=== PATIENT | female | born 1935 | race Caucasian/White ===

== ENCOUNTER 2016-05-12 00:17 | Inpatient (IN) | payer OTHER ==
[2016-05-12] VITALS (12 sets, daily range): BP systolic 93–166; BP diastolic 45–70; PULSE 98–119; RESP 16–20; TEMP 100.3; Ht 149.9 cm; Wt 48.0 kg
[~2016-05-12] VITALS: Ht 149.9 cm; Wt 48.0 kg
[2016-05-12] MEDS ORDERED: ONDANSETRON 4 MG INJ IV STA (01:04)
[2016-05-12] MEDS ORDERED: SOD CHLORIDE 0.9% 1,000 ML IV STA (01:04)
[2016-05-12 01:32] LABS: ADD UMIC YES; URINE BILIRUBIN (Dip) NEGATIVE (NEGATIVE); URINE BLOOD (Dip) 1+ (NEGATIVE); URINE COLOR LT. YELLOW (YELLOW); URINE GLUCOSE (Dip) >=1000 % (NEGATIVE); URINE KETONES (Dip) 40 (NEGATIVE); URINE LEUKOCYTE ESTERASE (Dip) NEGATIVE (NEGATIVE); URINE NITRITE (Dip) NEGATIVE (NEGATIVE); URINE TOTAL PROTEIN (Dip) NEGATIVE (NEGATIVE); URINE UROBILINOGEN (Dip) 0.2 E.U./dL (0.1-1.0)
[2016-05-12 01:42] LABS: ALBUMIN 3.4 g/dl (3.3-4.9); BACTERIA,URINE MANY; CHLORIDE 95 mmol/L (97-110); SODIUM 132 mmol/L (135-144); SQUAMOUS EPITHELIAL CELL,UR FEW; URINE RBCS 0-2 /HPF (0)
[2016-05-12 01:43] LABS: POTASSIUM 5.1 mmol/L (3.5-5.1)
[2016-05-12 01:44] LABS: CREATININE 0.84 mg/dl (0.44-1.00)
[2016-05-12 01:45] LABS: ALANINE AMINOTRANSFERASE 59 IU/L (13-69); ALBUMIN/GLOBULIN RATIO 0.97; ALKALINE PHOSPHATASE 149 IU/L (42-121); ANION GAP 18 (8-16); ASPARTATE AMINO TRANSFERASE 70 IU/L (15-46); BILIRUBIN,INDIRECT 0.2 mg/dl (0-1.1); BILIRUBIN,TOTAL 0.2 mg/dl (0.2-1.3); BLOOD UREA NITROGEN 25 mg/dl (7-20); CALCIUM 8.8 mg/dl (8.4-10.2); CARBON DIOXIDE 24 mmol/L (21-31); TOTAL PROTEIN 6.9 g/dl (6.1-8.1)
[2016-05-12 01:49] LABS: GLUCOSE 525 mg/dl (70-220)
[2016-05-12] MEDS ORDERED: INSULIN REGULAR, HUMAN 100 UNIT/1 ML 3ML VIAL SC ONE (02:00)
[2016-05-12 02:07] LABS: TROPONIN-I < 0.012 ng/ml (0.00-0.12)
[2016-05-12 02:51] LABS: MEAN CORPUSCULAR HEMOGLOBIN 22.3 pg (29.0-33.0); MEAN CORPUSCULAR HGB CONC 30.8 g/dl (32.0-37.0); MEAN CORPUSCULAR VOLUME 72.4 fl (82.0-101.0); MEAN PLATELET VOLUME 10.6 fl (7.4-10.4); PLATELET COUNT 267 10^3/UL (140-440); RED BLOOD COUNT 2.89 10^6/ul (4.20-5.40); RED CELL DISTRIBUTION WIDTH 22.5 % (11.5-14.5); UNCORRECTED WBC 15.2 10^3/ul (4.8-10.8); WHITE BLOOD COUNT 15.2 10^3/ul (4.8-10.8)
[2016-05-12 02:56] LABS: CONDITION 1; LH ANALYZER COMMENTS 1; SUSPECT 1
[2016-05-12 02:58] LABS: HEMOGLOBIN 6.5 g/dl (12.0-16.0)
[2016-05-12 03:17] LABS: BASOPHIL # 0.2 10^3/ul (0.0-0.1); LYMPHOCYTES # 0.5 10^3/ul (0.8-2.9); MONOCYTE # 0.3 10^3/ul (0.3-0.9); NEUTROPHIL # 14.3 10^3/ul (1.6-7.5)
[2016-05-12 03:18] LABS: PLATELET ESTIMATE PLT APPEAR ADEQUATE
--- NOTE | 2016-05-12 04:04 | ERA ---
ER Documentation Chief Complaint Date/Time DATE: 05/12/16 TIME: 03:56 Chief Complaint lower extremety edema, weakness 3 days HPI 80-year-old woman presents with recent weakness and dizziness for the last 3-4 days. She states she was recently diagnosed with anemia and began ferrous sulfate tablets. She denies blood per rectum or melena, no complaints of chest pain or shortness of breath, no fevers or chills, no vomiting or diarrhea. Denies recent blood transfusions or antibiotics. ROS All systems reviewed and are negative except as per history of present illness. Allergies Allergies: Coded Allergies: Penicillins (Verified Allergy, Severe, RASH, 05/12/16) Sulfa (Sulfonamide Antibiotics) (Verified Allergy, Severe, RASH, 05/12/16) aspirin (Verified Allergy, Severe, RASH, 05/12/16) PMhx/Soc Recurrent urinary tract infections, hypothyroidism, diabetes mellitus, diabetic retinopathy Hx Cardiac Disorders: Yes (DM) Hx Alcohol Use: No Hx Substance Use: No Hx Tobacco Use: No Smoking Status: Never smoker FmHx Family History: No diabetes Physical Exam Vitals Vital Signs Date Time Temp Pulse Resp B/P Pulse Ox O2 Delivery O2 Flow Rate FiO2 05/12/16 02:21 86 16 115/49 100 Room Air 05/12/16 01:23 Nasal Cannula 2 05/12/16 00:29 97.3 91 18 122/53 100 Physical Exam GENERAL: Well-developed, well-nourished, dehydrated appearing, in no apparent distress, looks nontoxic in appearance HEENT: Dry mucous membranes, pale conjunctival, no cervical spine tenderness or step-off deformities, no goiter, no jaundice or icterus, extraocular movements intact without pain. No submandibular induration, and no pharyngeal erythema NEURO: Alert and oriented 3, cranial nerves II through XII intact bilaterally, pupils equal round reactive to light, no focal deficits or facial asymmetry, sensation intact distally Strength 5/5 in upper and lower extremities bilaterally CARDIAC: Regular rate and rhythm, no murmurs rubs or gallops LUNGS: Clear bilaterally no wheezing crackles or stridor ABDOMEN: Soft nontender, no guarding, no rigidity, no rebound, no psoas sign no obturator sign. Normoactive bowel sounds SKIN: Warm and dry to touch, no abrasions, contusions, or hematomas, no lacerations, no ecchymosis, no target lesions, and without ulcers EXTREMITIES: No clubbing cyanosis or edema, calves are bilaterally symmetrical, no Homans sign, no popliteal cord sign. Distal pulses equal and bilateral PSYCH: Normal affect without agitation or irritability Result Diagram: 05/12/16 0110 05/12/16 0110 Results 24 hrs Laboratory Tests Test 05/12/16 01:10 05/12/16 02:13 05/12/16 03:47 Alanine Aminotransferase (ALT/SGPT) 59IU/L Albumin 3.4g/dl Albumin/Globulin Ratio 0.97 Alkaline Phosphatase 149IU/L Anion Gap 18 Aspartate Amino Transf (AST/SGOT) 70IU/L Basophils # 0.210^3/ul Basophils % 1.0% Blood Morphology Comment Blood Urea Nitrogen 25mg/dl Calcium Level 8.8mg/dl Carbon Dioxide Level 24mmol/L Chloride Level 95mmol/L Creatinine 0.84mg/dl Differential Comment Direct Bilirubin 0.00mg/dl Giant Platelets OCCASIONAL Globulin 3.50g/dl Glucose Level 525mg/dl Hematocrit 21.0% Hemoglobin 6.5g/dl Indirect Bilirubin 0.2mg/dl Large Platelets FEW Lipase 440U/L Lymphocytes # 0.510^3/ul Lymphocytes % 3.0% Mean Corpuscular Hemoglobin 22.3pg Mean Corpuscular Hemoglobin Concent 30.8g/dl Mean Corpuscular Volume 72.4fl Mean Platelet Volume 10.6fl Monocytes # 0.310^3/ul Monocytes % 2.0% Neutrophils # 14.310^3/ul Neutrophils % 94.0% Platelet Count 22055^3/UL Platelet Estimate PLT APPEAR ADEQUATE Potassium Level 5.1mmol/L Red Blood Count 2.8910^6/ul Red Cell Distribution Width 22.5% Sodium Level 132mmol/L Total Bilirubin 0.2mg/dl Total Protein 6.9g/dl Troponin I < 0.012ng/ml Urine Bacteria MANY Urine Bilirubin NEGATIVE Urine Clarity CLEAR Urine Color LT. YELLOW Urine Glucose >=1000% Urine Hemoglobin 1+ Urine Ketones 40 Urine Leukocyte Esterase NEGATIVE Urine Microscopic RBC 0-2/HPF Urine Microscopic WBC 0-2/HPF Urine Nitrite NEGATIVE Urine Specific [place] 1.010 Urine Squamous Epithelial Cells FEW Urine Total Protein NEGATIVE Urine Urobilinogen 0.2 E.U./dL Urine pH 5.5 White Blood Count 15.210^3/ul Bedside Glucose 444mg/dL 223mg/dL Current Medications Medications (Trade) Dose Ordered Sig/Pk Route PRN Reason Start Time Stop Time Status Last Admin Dose Admin Sodium Chloride (NS) 1,000 ml @ 1,000 mls/hr Q1H STAT IV 05/12/16 01:04 05/12/16 02:03 DC 05/12/16 01:17 Ondansetron HCl (Zofran Inj) 4 mg ONCE STAT IV 05/12/16 01:04 05/12/16 01:06 DC 05/12/16 01:17 Insulin Human Regular (Humulin R) 20 unit ONCE ONCE SC 05/12/16 02:00 05/12/16 02:01 DC 05/12/16 02:16 Procedures/MDM IV line was established patient was placed on school lunch monitor rhythm strip revealed a sinus rhythm at about 90 bpm with upright P and T waves. Patient was afebrile. EKG performed, read by me revealed a normal sinus rhythm at 80 bpm, right axis deviation, and a right ventricular conduction delay with a QRS duration of 114 ms, no concerning ST elevations or depressions noted. One AP view of the chest performed, read by me reveals no acute infiltrates, normal mediastinum, sharp costophrenic and cardiac borders, no air under the diaphragm. Otherwise unremarkable chest x-ray. I administered 1 L normal saline intravenously and Zofran 4 mg IV. Blood sugar was checked and it was elevated she received regular insulin 20 units subcutaneous injection 1 for hyperglycemia. CBC revealed a leukocytosis of 15 and severe anemia with a hemoglobin of 6.5. Electrolytes revealed dehydration with a BUN/creatinine of 25/0.8, blood sugar was 525 prior to insulin therapy, liver function tests are normal, troponin was negative. Urinalysis was negative for infection I ordered transfusion 2 units PRBCs IV over 4 hours for severe anemia. Critical Care: Time: 38 minutes, this was time separate from other procedures. Treatments/Evaluations: Close monitoring and treatment of unstable vital signs, cardiorespiratory, and neurologic status, while maintaining tight balance of fluid, respiratory, and cardiac interventions. Patient was last admitted to Dr. Rivera, I spoke to the physician covering him regarding the patient's presentation symptomatology. She accepted the patient who will be admitted to [facility]. Departure Diagnosis: Primary Impression: Acute weakness Additional Impressions: Anemia Qualified Code: D64.9 - Anemia, unspecified type Dehydration Hyperglycemia Condition: JON Bailey MD May 12, 2016 04:04
--- NOTE | 2016-05-12 04:52 | RADRPT ---
PROCEDURE: XR Chest. CLINICAL INDICATION: Shortness of breath. TECHNIQUE: AP Portable chest. COMPARISON: 07/12/2008 FINDINGS: There is mild cardiomegaly. Mild perihilar opacities are noted within the lower lungs. Diffuse inte rstitial prominence is seen. The osseous structures are unremarkable. IMPRESSION: Mild perihilar opacities and interstitial prominence likely due to edema. RPTAT: HIKT .Del Encarnacion MD, MD Date Time Electronically viewed and signed by .Del Encarnacion MD, MD on 05/12/2016 04:51 .T/
[2016-05-12] MEDS ORDERED: SOD CHLORIDE 0.9% 1,000 ML IV SCH (05:10)
[2016-05-12] MEDS ORDERED: ONDANSETRON 4 MG INJ IV PRN ×2 (05:30→12:00)
[2016-05-12] MEDS ORDERED: ACETAMINOPHEN 325 MG TAB PO PRN ×2 (05:30→12:00)
[2016-05-12] MEDS ORDERED: GLUCOSE GEL 15 GRAM TUBE ONE (06:41)
[2016-05-12] MEDS ORDERED: LANT3I SC (07:00)
[2016-05-12] MEDS ORDERED: HYDROCODONE/APAP (5/325) TAB PO PRN (07:00)
[2016-05-12] MEDS ORDERED: METF-388 PO (07:00)
[2016-05-12] MEDS: ACCUCHECK XX SCH ×4 (07:30→20:26)
[2016-05-12] MEDS: metFORMIN 500 MG TAB PO SCH ×2 (09:05→17:35)
[2016-05-12] MEDS ORDERED: NACL 0.9% 3 ML SYG IV SCH (12:00)
[2016-05-12] MEDS ORDERED: MAGNESIUM HYDROXIDE 30ML CUP PO PRN (12:00)
[2016-05-12] MEDS ORDERED: ZOLPIDEM 5 MG TAB PO PRN (12:00)
[2016-05-12] MEDS ORDERED: GLUCAGON 1 MG INJ IM PRN (13:30)
[2016-05-12] MEDS ORDERED: GLUCOSE GEL 15 GRAM TUBE PO PRN ×2 (13:30)
[2016-05-12] MEDS ORDERED: GLUCOSE GEL 15 GRAM TUBE BUCCAL PRN (13:30)
[2016-05-12] MEDS ORDERED: DEXTROSE 50% 50 ML SYRINGE IV PRN ×2 (13:30)
[2016-05-12] MEDS ORDERED: DIPHENHYDRAMINE 50 MG INJ IV ONE (17:00)
[2016-05-12] MEDS ORDERED: ACETAMINOPHEN 325 MG TAB PO ONE (17:00)
[2016-05-12 18:14] LABS: HEMATOCRIT 29.7 % (37.0-47.0); HEMOGLOBIN 9.6 g/dl (12.0-16.0)
[2016-05-12] MEDS: REPAGLINIDE 1 MG TAB PO SCH (18:26)
[2016-05-12] MEDS: INSULIN GLARGINE [LANtus] 3 ML PEN SC SCH (20:29)
[2016-05-12 21:38] LABS: POST-TRANSFUSION BILIRUBIN 0.4 mg/dl; PRETRANSFUSION BILIRUBIN 0.1 mg/dl
[2016-05-12 23:02] LABS: ADD UMIC YES; URINE BILIRUBIN (Dip) NEGATIVE (NEGATIVE); URINE BLOOD (Dip) 1+ (NEGATIVE); URINE COLOR LT. YELLOW (YELLOW); URINE GLUCOSE (Dip) >=1000 % (NEGATIVE); URINE KETONES (Dip) 15 (NEGATIVE); URINE LEUKOCYTE ESTERASE (Dip) NEGATIVE (NEGATIVE); URINE NITRITE (Dip) NEGATIVE (NEGATIVE); URINE TOTAL PROTEIN (Dip) NEGATIVE (NEGATIVE); URINE UROBILINOGEN (Dip) 0.2 E.U./dL (0.1-1.0)
[2016-05-12 23:36] LABS: BACTERIA,URINE MANY; SQUAMOUS EPITHELIAL CELL,UR FEW; URINE RBCS 0-2 /HPF (0)
[2016-05-13 05:12] LABS: HEMOGLOBIN 10.4 g/dl (12.0-16.0); MEAN CORPUSCULAR HEMOGLOBIN 25.1 pg (29.0-33.0); MEAN CORPUSCULAR HGB CONC 32.6 g/dl (32.0-37.0); MEAN CORPUSCULAR VOLUME 77.2 fl (82.0-101.0); MEAN PLATELET VOLUME 10.9 fl (7.4-10.4); PLATELET COUNT 234 10^3/UL (140-440); RED BLOOD COUNT 4.15 10^6/ul (4.20-5.40); RED CELL DISTRIBUTION WIDTH 21.7 % (11.5-14.5)
[2016-05-13] MEDS: ACETAMINOPHEN 325 MG TAB PO PRN ×2 (05:16→16:36)
[2016-05-13] MEDS: PANTOPRAZOLE (EC) 40 MG TAB PO SCH (05:16)
[2016-05-13 05:18] LABS: CONDITION 1; LH ANALYZER COMMENTS 1; SUSPECT 1
[2016-05-13 05:31] LABS: ALBUMIN 2.9 g/dl (3.3-4.9)
[2016-05-13 05:32] LABS: POTASSIUM 3.9 mmol/L (3.5-5.1)
[2016-05-13 05:34] LABS: ALBUMIN/GLOBULIN RATIO 0.82; BILIRUBIN,INDIRECT 0.3 mg/dl (0-1.1); BILIRUBIN,TOTAL 0.3 mg/dl (0.2-1.3); CREATININE 0.64 mg/dl (0.44-1.00); TOTAL PROTEIN 6.4 g/dl (6.1-8.1)
[2016-05-13 05:35] LABS: CALCIUM 8.4 mg/dl (8.4-10.2)
[2016-05-13] MEDS: ACCUCHECK XX SCH ×4 (07:30→21:00)
[2016-05-13 07:46] VITALS: BP 99/52; RESP 18
[2016-05-13] MEDS: REPAGLINIDE 1 MG TAB PO SCH ×3 (08:47→16:37)
[2016-05-13] MEDS: metFORMIN 500 MG TAB PO SCH ×2 (08:47→16:37)
[2016-05-13 09:31] LABS: MONOCYTE # 0.7 10^3/ul (0.3-0.9); MYELOCYTES # 0.1; NEUTROPHIL # 10.9 10^3/ul (1.6-7.5)
--- NOTE | 2016-05-13 13:13 | PN ---
Date/Time of Note Date/Time of Note DATE: 05/13/16 TIME: 13:05 Assessment/Plan VTE Prophylaxis VTE Prophylaxis Intervention: other Lines/Catheters IV [facility] Peripheral IV Urinary Cath still in place: No Assessment/Plan Problems: (1) Anemia Status: Acute Comment: Pending her iron studies. It is unclear exactly how long this anemia is been going on with this patient. She is not the best historian no complaint data came with her and she also has issues with compliance Qualifiers: Anemia type: unspecified type Qualified Code: D64.9 - Anemia, unspecified type (2) Diabetes mellitus type 2 in nonobese Status: Chronic Comment: For A1c was fair. She was on insulin only and metformin. She reports that she had a number of other medications whose name and purpose were unknown to her. She did stop these because she was taking "too many pills" (3) Hypothyroidism (acquired) Status: Chronic Comment: Patient has been taking levothyroxine at home. The dosing is unknown. Our staff at the emergency room did not delineate the details. In addition please note this patient has some issues of compliance although in this case I believe she was taking that medication (4) Diabetic retinopathy associated with type 2 diabetes mellitus Status: Chronic Comment: Status of this issue is unknown. It does not meet immediate urgency but she will need to follow-up with us as an outpatient. Qualifiers: Diabetic retinopathy severity: with unspecified retinopathy severity Laterality: unspecified laterality Subjective 24 Hr Interval Summary Free Text/Dictation 80-year-old female reports was told to go to the hospital by her primary care physician Dr. Joseph Castellanos of [facility] for anemia. No other data is available patient had been on number of medications at home most which she discontinued. Constitutional: no complaints (Denies fevers chills or sweats) Eyes: no complaints (Denies any issues but has not been in to see the commercial driver for routine diabetic eye checks) ENT: no complaints Respiratory: no complaints Cardiovascular: no complaints Gastrointestinal: no complaints Genitourinary: no complaints Musculoskeletal: other (Complains of discomfort at the left anterior superior iliac crest intermittently) Neurologic: no complaints Lymphatic: no complaints Exam/Review of Systems Vital Signs Vitals Vital Signs Date Time Temp Pulse Resp B/P Pulse Ox O2 Delivery O2 Flow Rate FiO2 05/13/16 07:46 98.7 69 18 99/52 96 05/12/16 18:45 Room Air 05/12/16 01:23 2 Intake and Output 05/12/16 05/12/16 05/13/16 15:00 23:00 07:00 Intake Total 1280 ml 240 ml Output Total 700 ml 300 ml Balance 580 ml -60 ml Exam Constitutional: alert, oriented Neck: non-tender, supple Respiratory: clear to auscultation, normal air movement Cardiovascular: nl pulses, regular rate and rhythm Gastrointestinal: nl liver, spleen, non-tender, soft, surgical scars (Midline surgical scars consistent with her reported prior 2 C-sections) Musculoskeletal: nl extremities to inspection (Did not ambulate) Extremities: normal pulses Results Result Diagram: 05/13/1642105/13/16421 Results 24 hrs Laboratory Tests Test 05/12/16 16:00 05/12/16 17:31 05/12/16 18:00 05/12/16 20:03 Bedside Glucose 360 H 348 H 372 H Hematocrit 29.7 #L Hemoglobin 9.6 #L Test 05/12/16 21:40 05/12/16 22:15 05/13/16 02:16 05/13/16 04:22 Urine Bacteria MANY Urine Bilirubin NEGATIVE Urine Clarity SLIGHTLY CLOUDY Urine Color LT. YELLOW Urine Glucose >=1000 Urine Hemoglobin 1+ H Urine Ketones 15 Urine Leukocyte Esterase NEGATIVE Urine Microscopic RBC 0-2 Urine Microscopic WBC 5-10 Urine Nitrite NEGATIVE Urine Specific [place] 1.020 Urine Squamous Epithelial Cells FEW Urine Total Protein NEGATIVE Urine Urobilinogen 0.2 E.U./dL Urine pH 5.0 Stool Occult Blood NEGATIVE Bedside Glucose 166 Alanine Aminotransferase (ALT/SGPT) 82 H Albumin 2.9 L Albumin/Globulin Ratio 0.82 Alkaline Phosphatase 202 H Anion Gap 14 Aspartate Amino Transf (AST/SGOT) 68 H Band Neutrophils % 9.0 H Blood Morphology Comment Blood Urea Nitrogen 15 # Calcium Level 8.4 Carbon Dioxide Level 29 Chloride Level 101 Creatinine 0.64 Direct Bilirubin 0.00 Globulin 3.50 H Glucose Level 107 # Hematocrit 32.0 L Hemoglobin 10.4 L Hemoglobin A1c 8.1 H Indirect Bilirubin 0.3 Lymphocytes # 1.0 Lymphocytes % 7.0 L Mean Corpuscular Hemoglobin 25.1 L Mean Corpuscular Hemoglobin Concent 32.6 Mean Corpuscular Volume 77.2 L Mean Platelet Volume 10.9 H Monocytes # 0.7 Monocytes % 5.0 Myelocytes # 0.1 Myelocytes % 1.0 H Neutrophils # 10.9 H Neutrophils % 78.0 H Nucleated Red Blood Cells # Nucleated Red Blood Cells % Platelet Count 234 Potassium Level 3.9 Red Blood Count 4.15 #L Red Cell Distribution Width 21.7 H Sodium Level 140 Total Bilirubin 0.3 Total Protein 6.4 White Blood Count 14.0 H Test 05/13/16 07:58 05/13/16 11:48 Bedside Glucose 77 154 Medications Medications Current Medications Acetaminophen/ Hydrocodone Bitart ([place] (5/325)) 1 tab Q4H PRN PO PAIN; Start 05/12/16 at 07:00 Insulin Glargine (Lantus) 35 unit QHS SC Last administered on 05/12/16t 20:29; Admin Dose 35 UNIT; Start 05/12/16 at 21:00 Ondansetron HCl (Zofran Inj) 4 mg Q6H PRN IV NAUSEA AND/OR VOMITING; Start at 12:00 Magnesium Hydroxide (Milk Of Mag) 30 ml DAILY PRN PO CONSTIPATION; Start at 12:00 Zolpidem Tartrate (Ambien) 5 mg QHS PRN PO SLEEP; Start 05/12/16 at 12:00 Pantoprazole (Protonix Tab) 40 mg DAILY@06 PO Last administered on 05/13/16 05 :16; Admin Dose 40 MG; Start 05/13/16 at 06:00 Miscellaneous Information 1 ea NOTE XX ; Start 05/12/16 at 13:30 Glucose (Glutose) 15 gm Q15M PRN PO DECREASED GLUCOSE; Start 05/12/16 at 13:30 Glucose (Glutose) 22.5 gm Q15M PRN PO DECREASED GLUCOSE; Start 05/12/16 at 13: 30 Dextrose (D50w Syringe) 25 ml Q15M PRN IV DECREASED GLUCOSE; Start 05/12/16 at 13:30 Dextrose (D50w Syringe) 50 ml Q15M PRN IV DECREASED GLUCOSE; Start 05/12/16 at 13:30 Glucagon (Glucagen) 1 mg Q15M PRN IM DECREASED GLUCOSE; Start 05/12/16 at 13:30 Glucose (Glutose) 15 gm Q15M PRN BUCCAL DECREASED GLUCOSE; Start 05/12/16 at 13 :30 Acetaminophen (Tylenol Tab) 650 mg Q8H PRN PO PAIN AND OR ELEVATED TEMP Last administered on 05/13/16 05:16; Admin Dose 650 MG; Start 05/12/16 at 17:00 Levothyroxine Sodium (Synthroid) 88 mcg DAILY@06 PO ; Start 05/14/16 at 06:00; Status MELVIN MOLINA MD May 13, 2016 13:13
[2016-05-13 13:56] LABS: TOTAL IRON BINDING CAPACITY 315 ug/dl (241-421)
[2016-05-13 14:02] LABS: IRON < 10 ug/dl (35-150)
[2016-05-13 20:00] VITALS: BP 103/53; PULSE 83; RESP 20
[2016-05-13 20:00] LABS: ADD UMIC YES; URINE BILIRUBIN (Dip) NEGATIVE (NEGATIVE); URINE BLOOD (Dip) 2+ (NEGATIVE); URINE COLOR LT. YELLOW (YELLOW); URINE KETONES (Dip) NEGATIVE (NEGATIVE); URINE LEUKOCYTE ESTERASE (Dip) 1+ (NEGATIVE); URINE NITRITE (Dip) NEGATIVE (NEGATIVE); URINE TOTAL PROTEIN (Dip) NEGATIVE (NEGATIVE); URINE UROBILINOGEN (Dip) 0.2 E.U./dL (0.1-1.0)
[2016-05-13] MEDS ORDERED: SOD FERRIC GLUC COMPLX 125 MG in SOD CHLORIDE 0.9% 100 ML IVPB ONE (20:00)
[2016-05-13] MEDS: INSULIN GLARGINE [LANtus] 3 ML PEN SC SCH (20:17)
[2016-05-13 20:32] LABS: SQUAMOUS EPITHELIAL CELL,UR FEW
[2016-05-13 20:33] LABS: BACTERIA,URINE MANY
--- NOTE | 2016-05-13 22:25 | HP ---
Date/Time of Note Date/Time of Note DATE: 05/13/16 TIME: 22:01 Late entry: Patient was seen on 05/12/2016 at 12:40 pm Assessment/Plan VTE Prophylaxis VTE Prophylaxis Intervention: ambulation Lines/Catheters [facility] Sal[place] Lock Urinary Cath still in place: No Assessment/Plan Problems: (1) Iron deficiency Status: Chronic Comment: Patient has been on iron supplements for 1 month and remains iron deficient and anemic. Will check stool for blood loss. (2) Anemia Status: Acute Comment: Transfuse 2 units PRBC. Check post transfusion H/H. Send stool for occult blood. If positive will obtain GI consult. If negative will get Hematology consult. Qualifiers: Anemia type: iron deficiency (3) Diabetes mellitus type 2 in nonobese Status: Chronic Comment: Accu check AC and HS. Continue Lantus and metformin. Will add repaglinide AC and Sliding scale (4) Hypothyroidism (acquired) Status: Chronic Comment: Check thyroid function as patient has been off thyroid replacement for a few weeks. Resume replacement therapy prn results. Assessment/Plan 80 year old [place] woman with severe anemia, likely iron deficiency anemia but unknown etiology of the iron deficiency. Admitted for transfusion and further workup to identify cause. Hemodynamically stable at this time. Home medications reviewed. Admit to Med-Surg floor. HPI/ROS Admit Date/Time Admit Date/Time May 12, 2016 at 03:27 Patient seen Friday05/12/2016 at 12:40 Hx of Present Illness 80 year old [place] woman presents to the [facility] because her PMD "told her to go" . Ms. Campos is regularly followed at [facility] and was diagnosed 1 month ago with anemia. She was started on iron supplements. 5 days ago she returned to see her doctor be cause she was feeling extremely fatigued, and she was told she was severely anemic and should go to the [facility]. She returned home instead of coming to the hospital. She denies melena or black stools. Denies vaginal bleeding. Denies use of NSAIDS. Denies hematemesis. After 5 days of feeling progressively worse and more fatigued she comes to [facility] on Friday. Her Hemoglobulin is 6.5 g/dl. She is admitted for transfusion and further work up. ROS Constitutional: fatigue Eyes: no complaints (Denies any issues but has not been in to see the inclusion paraeducator for routine diabetic eye checks) ENT: no complaints Respiratory: no complaints Cardiovascular: no complaints Gastrointestinal: no complaints Genitourinary: bleeding (denies bleeding), no complaints Musculoskeletal: other (Complains of discomfort at the left anterior superior iliac crest intermittently), swelling (lower extremity edema) Skin: no complaints Neurologic: no complaints Endocrine: no complaints Lymphatic: no complaints Psychological: no complaints Immunologic: no complaints PMH/Family/Social Past Medical History Medical History: diabetes (with chronic complications), hypothyroid Family History Significant Family History: other (unknown) Social History Alcohol Use: none Smoking Status: Never smoker Drug Use: none Exam/Review of Systems Vital Signs Vitals Vital Signs Date Time Temp Pulse Resp B/P Pulse Ox O2 Delivery O2 Flow Rate FiO2 05/13/16 07:46 98.7 69 18 99/52 96 05/12/16 18:45 Room Air 05/12/16 01:23 2 Intake and Output 05/12/16 05/12/16 05/13/16 15:00 23:00 07:00 Intake Total 1280 ml 240 ml Output Total 700 ml 300 ml Balance 580 ml -60 ml Exam Constitutional: alert, oriented, well developed Head: normocephalic Eyes: other (pale conjunctiva) Neck: supple Respiratory: clear to auscultation Cardiovascular: regular rate and rhythm Gastrointestinal: bowel sounds, nl liver, spleen, non-tender, soft Musculoskeletal: nl extremities to inspection Extremities: edema (trace), normal pulses Neurological: nl mental status, nl speech, reflexes (normal) Skin: nl turgor Labs Result Diagram: 05/13/1642105/13/16421 Medications Medications Current Medications Acetaminophen/ Hydrocodone Bitart ([place] (5/325)) 1 tab Q4H PRN PO PAIN; Start 05/12/16 at 07:00 Insulin Glargine (Lantus) 35 unit QHS SC Last administered on 05/13/16t 20:17; Admin Dose 35 UNIT; Start 05/12/16 at 21:00 Ondansetron HCl (Zofran Inj) 4 mg Q6H PRN IV NAUSEA AND/OR VOMITING; Start at 12:00 Magnesium Hydroxide (Milk Of Mag) 30 ml DAILY PRN PO CONSTIPATION; Start at 12:00 Zolpidem Tartrate (Ambien) 5 mg QHS PRN PO SLEEP; Start 05/12/16 at 12:00 Pantoprazole (Protonix Tab) 40 mg DAILY@06 PO Last administered on 05/13/16 05 :16; Admin Dose 40 MG; Start 05/13/16 at 06:00 Miscellaneous Information 1 ea NOTE XX ; Start 05/12/16 at 13:30 Glucose (Glutose) 15 gm Q15M PRN PO DECREASED GLUCOSE; Start 05/12/16 at 13:30 Glucose (Glutose) 22.5 gm Q15M PRN PO DECREASED GLUCOSE; Start 05/12/16 at 13: 30 Dextrose (D50w Syringe) 25 ml Q15M PRN IV DECREASED GLUCOSE; Start 05/12/16 at 13:30 Dextrose (D50w Syringe) 50 ml Q15M PRN IV DECREASED GLUCOSE; Start 05/12/16 at 13:30 Glucagon (Glucagen) 1 mg Q15M PRN IM DECREASED GLUCOSE; Start 05/12/16 at 13:30 Glucose (Glutose) 15 gm Q15M PRN BUCCAL DECREASED GLUCOSE; Start 05/12/16 at 13 :30 Acetaminophen (Tylenol Tab) 650 mg Q8H PRN PO PAIN AND OR ELEVATED TEMP Last administered on 05/13/16 16:36; Admin Dose 650 MG; Start 05/12/16 at 17:00 Levothyroxine Sodium 88 mcg 88 mcg DAILY@06 PO ; Start 05/14/16 at 06:00 Ferric Sodium Gluconate Complex/ Sodium Chloride (Ferrlecit/NS) 110 ml @ 100 mls/hr Q24H IVPB ; Start 05/14/16 at 20:00; Stop 05/16/16 at 21:05 Procedures Procedures Receiving PRBC transfusion. ROSA GARCIA MD May 13, 2016 22:11
[2016-05-14] MEDS ORDERED: LEVOTHYROXINE 88 MCG TAB PO SCH (06:00)
[2016-05-14 06:21] LABS: POTASSIUM 3.9 mmol/L (3.5-5.1)
[2016-05-14 06:23] LABS: CREATININE 0.6 mg/dl (0.44-1.00)
[2016-05-14 06:24] LABS: ALBUMIN/GLOBULIN RATIO 0.83; BILIRUBIN,INDIRECT 0.1 mg/dl (0-1.1); BILIRUBIN,TOTAL 0.1 mg/dl (0.2-1.3); CALCIUM 8.6 mg/dl (8.4-10.2); TOTAL PROTEIN 6.6 g/dl (6.1-8.1)
[2016-05-14] MEDS: PANTOPRAZOLE (EC) 40 MG TAB PO SCH (06:29)
[2016-05-14 07:03] LABS: HEMATOCRIT 33.1 % (37.0-47.0); HEMOGLOBIN 10.7 g/dl (12.0-16.0); MEAN CORPUSCULAR HEMOGLOBIN 24.9 pg (29.0-33.0); MEAN CORPUSCULAR HGB CONC 32.2 g/dl (32.0-37.0); MEAN CORPUSCULAR VOLUME 77.4 fl (82.0-101.0); MEAN PLATELET VOLUME 11.1 fl (7.4-10.4); PLATELET COUNT 243 10^3/UL (140-440); RED BLOOD COUNT 4.28 10^6/ul (4.20-5.40); RED CELL DISTRIBUTION WIDTH 21.4 % (11.5-14.5); UNCORRECTED WBC 12.9 10^3/ul (4.8-10.8); WHITE BLOOD COUNT 12.9 10^3/ul (4.8-10.8)
[2016-05-14 07:16] LABS: CONDITION 1; LH ANALYZER COMMENTS 1; SUSPECT 1
[2016-05-14] MEDS: ACCUCHECK XX SCH ×3 (07:30→17:10)
[2016-05-14] MEDS: REPAGLINIDE 1 MG TAB PO SCH ×2 (07:30→12:01)
[2016-05-14] MEDS: metFORMIN 500 MG TAB PO SCH ×2 (08:00→17:15)
[2016-05-14 08:13] VITALS: BP 97/48; RESP 18
--- NOTE | 2016-05-14 09:57 | RADRPT ---
Echocardiogram Report Patient Name: SHORTY RENTERIA Gender: Female Date: 1935 Study Date: 13-May-2016 Mid Level Game Designer: [employer] [facility] Location: 2265 Ref. Physician: MELVIN DEL ANGEL Quality: Adequate Procedures: Transthoracic echocardiogram with complete 2D, M-Mode, and doppler examination. Indications: Possible Systolic Dysfunction. 2D/M Mode Doppler Measurement Value Normal Ranges Measurement Value Normal Ranges LVIDd 2D 3.7 3.5 - 5.6 cm AV Peak Alex 1.3 m/sec LVIDs 2D 2.5 2.1 - 4.1 cm AV Peak PG 7.0 mmHg FS 2D 31.0 % LVOT Peak Alex 1.0 m/sec LVPWd 2D 1.3 0.6 - 1.1 cm LVOT Peak PG 4.0 mmHg IVSd 2D 1.1 0.6 - 1.1 cm MV E Peak Alex 0.9 m/sec IVS/LVPW 2D 0.9 MV A Peak Alex 0.9 m/sec AoR Diam 2D 2.3 2.0 - 3.7 cm MV E/A 1.0 LA/Ao 2D 1 0 - 1 MV Decel Time 182 msec EDV 2D 49.8 cm3 MV E/A 1.0 ESV 2D 16.4 cm3 MR Peak PG 88.0 mmHg LA Dimen 2D 3.0 2.3 - 4.0 cm MR Peak Alex 4.7 m/sec TR Peak Alex 2.5 m/sec TR Peak PG 24.0 mmHg Findings Left Ventricle: Normal left ventricular systolic function. Normal left ventricular cavity size. Mild concentric left ventricular hypertrophy. Ejection fraction is visually estimated at 65 %. Tissue Doppler/Mitral Doppler indices are consistent with pseudonormalization with mildly elevated left atrial pressure (Stage II diastolic dysfunction). Right Ventricle: Normal right ventricular size. Normal right ventricular systolic function. Left Atrium: There is mild enlargement of left atrium. Right Atrium: The right atrium is normal in size. Mitral Valve: Mitral valve leaflets appear mildly thickened. Moderate mitral valve regurgitation. Aortic Valve: Aortic sclerosis without stenosis. Trileaflet aortic valve. Trace aortic valve regurgitation. Tricuspid Valve: Normal right ventricular systolic pressure. Tricuspid valve not well visualized. Estimated peak PA systolic pressure 27 mmHg. There is mild tricuspid regurgitation. Pulmonic Valve: Pulmonic valve not well visualized. There is trace pulmonic regurgitation. Pericardium: Normal pericardium with no significant pericardial effusion. Aorta: Normal aortic root. IVC: Normal size and normal respiratory collapse consistent with normal right atrial pressure. Conclusions Normal left ventricular systolic function. Normal left ventricular cavity size. Mild concentric left ventricular hypertrophy. Ejection fraction is visually estimated at 65 %. Tissue Doppler/Mitral Doppler indices are consistent with pseudonormalization with mildly elevated left atrial pressure (Stage II diastolic dysfunction). Normal right ventricular size. Normal right ventricular systolic function. There is mild enlargement of left atrium. Mitral valve leaflets appear mildly thickened. Moderate mitral valve regurgitation. Aortic sclerosis without stenosis. Trileaflet aortic valve. Trace aortic valve regurgitation. Normal right ventricular systolic pressure. Tricuspid valve not well visualized. Estimated peak PA systolic pressure 27 mmHg. There is mild tricuspid regurgitation. Normal size and normal respiratory collapse consistent with normal right atrial pressure. No Vegetation, masses, or thrombi seen. False chord noted in mid LV cavity. Electronically Signed By: Gilmar Case 14-May-2016 09:56:06 -0800 Patient Name: SHORTY RENTERIA Study Date: 13-May-2016 [id number]
[2016-05-14 10:06] LABS: LYMPHOCYTES # 0.5 10^3/ul (0.8-2.9); MONOCYTE # 1.9 10^3/ul (0.3-0.9); NEUTROPHIL # 9.2 10^3/ul (1.6-7.5)
--- NOTE | 2016-05-14 13:22 | PDOCDIS ---
Discharge Instructions DIAGNOSIS Discharge Diagnosis: Severe iron deficiency anemia; DM 2; medical noncooperation CONDITION Patient Condition: Fair HOME CARE INSTRUCTIONS: Special Diet: Diabetic diet ACTIVITY: Activity Restrictions: No Restrictions FOLLOW UP/APPOINTMENTS Appointments Dr. Joseph Castellanos in 2 weeks MELVIN DEL ANGEL MD May 14, 2016 13:22
[2016-05-14] MEDS ORDERED: GABA300C16 PO (13:25)
[2016-05-14] MEDS ORDERED: LISI20TA11 PO (13:25)
[2016-05-14] MEDS ORDERED: FER325 PO (13:25)
[2016-05-14] MEDS ORDERED: LEVO100T87 PO (13:25)
[2016-05-14] MEDS ORDERED: PRA20 PO (13:25)
[2016-05-14] MEDS ORDERED: DOCU50CA9 PO (13:25)
--- NOTE | 2016-05-14 13:26 | DS ---
Date/Time of Note Date/Time of Note DATE: 05/14/16 TIME: 13:23 Discharge Summary Admission/Discharge Info Admit Date/Time May 12, 2016 at 03:27 Discharge Date/Time 05/14/2016 Final Diagnosis Severe iron deficiency anemia cause of iron loss unknown; hypothyroidism; diabetes mellitus type 2; severe medical noncompliance Patient Condition: Fair Procedures Transfusion 3 units packed red blood cells Hx of Present Illness 80 year old [facility] woman presents to the [facility] because her PMD "told her to go" . Ms. Campos is regularly followed at [facility] and was diagnosed 1 month ago with anemia. She was started on iron supplements. 5 days ago she returned to see her doctor be cause she was feeling extremely fatigued, and she was told she was severely anemic and should go to the [facility]. She returned home instead of coming to the hospital. She denies melena or black stools. Denies vaginal bleeding. Denies use of NSAIDS. Denies hematemesis. After 5 days of feeling progressively worse and more fatigued she comes to [facility] on Friday. Her Hemoglobulin is 6.5 g/dl. She is admitted for transfusion and further work up. Hospital Course 80-year-old woman who was admitted for severe anemia. Try her to getting iron studies she had blood transfused her with blood labs to perform the iron studies. She has severe iron deficiency anemia and on this basis she has been giving IV iron since she did not get adequate supplementation from oral iron. Please note that there is some question about how diligent she was about taking the oral iron. Regardless her blood counts are up she is feeling better and she is not a point where she is medically safe and stable for discharge. Her rehabilitation potential is fair she has no known communicable diseases she is not a hazard to herself or others she is competent for medical decisions Home Meds Reported Medications Insulin Glargine* (Lantus*) 100 Unit/Ml Soln, 35 UNIT SC QHS, #1 VIAL 05/12/16 Metformin Hcl* (Metformin Hcl*) 1,000 Mg Tablet, 1000 MG PO WITH BREAKFAST DINNE , #60 TAB 05/12/16 Follow-up Plan Dr. Joseph Castellanos in 2c weeks Pending Labs Laboratory Tests Test 05/13/16 13:40 05/13/16 16:40 05/13/16 19:49 05/14/16 02:12 Urine Bacteria MANY Urine Bilirubin NEGATIVE (NEGATIVE) Urine Clarity SLIGHTLY CLOUDY (CLEAR) Urine Color LT. YELLOW (YELLOW) Urine Glucose 0.25%% (NEGATIVE) Urine Hemoglobin 2+ (NEGATIVE) Urine Ketones NEGATIVE (NEGATIVE) Urine Leukocyte Esterase 1+ (NEGATIVE) Urine Microscopic RBC 5-10/HPF (0) Urine Microscopic WBC 10-25/HPF (0) Urine Nitrite NEGATIVE (NEGATIVE) Urine Specific [place] 1.025 (1.003-1.030) Urine Squamous Epithelial Cells FEW Urine Total Protein NEGATIVE (NEGATIVE) Urine Urobilinogen 0.2 E.U./dL (0.1-1.0) Urine pH 5.0 (5.0-9.0) Bedside Glucose 92mg/dL (70-220) 177mg/dL (70-220) 50mg/dL (70-220) Test 05/14/16 03:00 05/14/16 03:15 05/14/16 05:15 05/14/16 08:13 Bedside Glucose 82mg/dL (70-220) 104mg/dL (70-220) 116mg/dL (70-220) Alanine Aminotransferase (ALT/SGPT) 60IU/L (13-69) Albumin 3.0g/dl (3.3-4.9) Albumin/Globulin Ratio 0.83 Alkaline Phosphatase 154IU/L (42-121) Anion Gap 16 (8-16) Aspartate Amino Transf (AST/SGOT) 34IU/L (15-46) Band Neutrophils % 9.0% (0.0-5.0) Blood Morphology Comment Blood Urea Nitrogen 13mg/dl (7-20) Calcium Level 8.6mg/dl (8.4-10.2) Carbon Dioxide Level 26mmol/L (21-31) Chloride Level 101mmol/L (97-110) Creatinine 0.60mg/dl (0.44-1.00) Direct Bilirubin 0.00mg/dl (0.00-0.20) Globulin 3.60g/dl (1.3-3.2) Glucose Level 109mg/dl (70-220) Hematocrit 33.1% (37.0-47.0) Hemoglobin 10.7g/dl (12.0-16.0) Indirect Bilirubin 0.1mg/dl (0-1.1) Lymphocytes # 0.510^3/ul (0.8-2.9) Lymphocytes % 4.0% (15.0-51.0) Mean Corpuscular Hemoglobin 24.9pg (29.0-33.0) Mean Corpuscular Hemoglobin Concent 32.2g/dl (32.0-37.0) Mean Corpuscular Volume 77.4fl (82.0-101.0) Mean Platelet Volume 11.1fl (7.4-10.4) Metamyelocytes # 0.1 Metamyelocytes % 1.0% (0.0-0.0) Monocytes # 1.910^3/ul (0.3-0.9) Monocytes % 15.0% (0.0-11.0) Neutrophils # 9.210^3/ul (1.6-7.5) Neutrophils % 71.0% (39.0-77.0) Nucleated Red Blood Cells # 10^3/ul (0.0-0.0) Nucleated Red Blood Cells % /100WBC (0.0-0.0) Platelet Count 75991^3/UL (140-440) Potassium Level 3.9mmol/L (3.5-5.1) Red Blood Count 4.2810^6/ul (4.20-5.40) Red Cell Distribution Width 21.4% (11.5-14.5) Sodium Level 139mmol/L (135-144) Total Bilirubin 0.1mg/dl (0.2-1.3) Total Protein 6.6g/dl (6.1-8.1) White Blood Count 12.910^3/ul (4.8-10.8) Test 05/14/16 11:54 Bedside Glucose 125mg/dL (70-220) Microbiology Date/Time Source Procedure Growth Status 05/13/16 13:40 Catheter Urine Urine Culture - Preliminary Gram Negative Bruno MELVIN Javed MD May 14, 2016 13:26
[2016-05-14] MEDS ORDERED: LANT3I SC (13:29)
[2016-05-14] MEDS ORDERED: REPA1TAB14 PO (13:29)
[2016-05-14] MEDS ORDERED: SOD FERRIC GLUC COMPLX 125 MG in SOD CHLORIDE 0.9% 100 ML IVPB ONE (15:00)
[2016-05-14] MEDS ORDERED: REPAGLINIDE 1 MG TAB PO SCH (17:35)
[2016-05-14] MEDS ORDERED: INSULIN GLARGINE [LANtus] 3 ML PEN SC SCH (21:00)
[2016-05-15] MEDS ORDERED: SOD FERRIC GLUC COMPLX 125 MG in SOD CHLORIDE 0.9% 100 ML IVPB SCH (20:00)
== END 2016-05-14 18:56 | disposition home or self-care (01) | DRG 812 ==
LOC: E/R 00:17 → PP2 03:27
PROVIDERS: ADMIT Internal Medicine; ATTEND Internal Medicine
PROC: 30233N1 Transfusion of Nonautologous Red Blood Cells into Peripheral Vein, Percutaneous Approach (ICD-10-PCS; principal; 2016-05-12)
DX: D64.9 Anemia, unspecified (principal); E11.65 Type 2 diabetes mellitus with hyperglycemia; E03.9 Hypothyroidism, unspecified; E11.319 Type 2 diabetes mellitus with unspecified diabetic retinopathy without macular edema; Z91.14 Patient's other noncompliance with medication regimen
CPT/HCPCS: 36415; 36430; 71010; 80053; 81001; 81003; 82270; 82728; 82962; 83036; 83540; 83690; 84439; 84443; 84484; 85014; 85018; 85025; 86078; 86803; 86850; 86900; 86901; 86920; 87086; 87340; 93005; 93306; 96372; 96374; J1200; J1815; J2405; J2916; J7030; P9016